=== PATIENT | male | born 1970 ===

== ENCOUNTER 2024-08-08 19:37 | Inpatient (IN) | payer OTHER ==
[~2024-08-08] VITALS: Ht 170.2 cm; Wt 89.1 kg
[2024-08-08] MEDS ORDERED: Ondansetron HCl 2 MG / ML 2ML Vial IV PRN ×2 (20:00→22:50)
[2024-08-08 20:06] LABS: BASOPHILS ABSOLUTE AUTO 0.03 K/mm3 (0.00-0.23); BASOPHILS PERCENT AUTO 0 % (0-2); EOSINOPHILS ABSOLUTE AUTO 0.01 K/mm3 (0.00-0.68); EOSINOPHILS PERCENT AUTO 0 % (0-6); Hematocrit 32.8 % (37.0-53.0); Hemoglobin 10.9 g/dL (13.5-17.5); IMMATURE GRAN ABSOLUTE AUTO 0.05 K/mm3 (0.00-0.10); IMMATURE GRAN PERCENT AUTO 1 % (0-1); LYMPHOCYTES ABSOLUTE AUTO 0.65 K/mm3 (0.84-5.20); LYMPHOCYTES PERCENT AUTO 8 % (21-46); MONOCYTES ABSOLUTE AUTO 0.67 K/mm3 (0.16-1.47); MONOCYTES PERCENT AUTO 8 % (4-13); Mean Corpuscular HGB 29.5 pg (26.0-34.0); Mean Corpuscular HGB Conc 33.2 g/dL (31.5-36.5); Mean Corpuscular Volume 89 fL (80-100); Mean Platelet Volume 9.9 fL (9.1-12.4); NEUTROPHILS ABSOLUTE AUTO 6.85 K/mm3 (1.96-9.15); NEUTROPHILS PERCENT AUTO 83 % (41-73); Platelet Count 300 K/mm3 (150-400); RDW Coefficient Variation 13.5 % (11.7-14.2); White Blood Cell Count 8.26 K/mm3 (4.00-11.30)
[2024-08-08 20:14] LABS: Albumin/Globulin Ratio 0.8 (0.8-1.8); Bilirubin, Total 0.8 mg/dL (0.1-1.0); Bun/Creatinine Ratio 15.7 (12.0-20.0); Calcium, Blood 9.1 mg/dL (8.5-10.1); Creatinine, Blood 1.02 mg/dL (0.60-1.20); Potassium, Blood 3.8 mmol/L (3.5-5.5)
[2024-08-08] MEDS ORDERED: Morphine Sulfate 4 MG/1 ML Injection IV ONE (22:15)
[2024-08-08] MEDS ORDERED: Dose Adjust by Pharmacy XX STA (22:30)
[2024-08-08 22:31] LABS: Anti-Xa UFH, PHA Monitoring <0.10 IU/mL; International Normalized Ratio 1.06; Prothrombin Time Results 11.3 Sec (9.7-11.5)
[2024-08-08] MEDS ORDERED: Heparin Sodium 5000 Units/ML 1ML MDV IV ONE (22:35)
[2024-08-08] MEDS ORDERED: Heparin Sodium,Porcine/0.5 NS 500 ML IV SCH (22:35)
[2024-08-08] MEDS ORDERED: NS 1,000 ML IV SCH (22:50)
[2024-08-08] MEDS ORDERED: FentaNYL Citrate 50 MCG/ML 2 ML Injection IV PRN (22:50)
[2024-08-08] MEDS ORDERED: FLU VACC TS2024-25(6MOS UP)/PF 45 MCG/0.5 ML SYRINGE IM ONE (22:50)
[2024-08-09 05:13] LABS: BASOPHILS ABSOLUTE AUTO 0.03 K/mm3 (0.00-0.23); BASOPHILS PERCENT AUTO 0 % (0-2); EOSINOPHILS ABSOLUTE AUTO 0.01 K/mm3 (0.00-0.68); EOSINOPHILS PERCENT AUTO 0 % (0-6); Hematocrit 30.7 % (37.0-53.0); Hemoglobin 10.4 g/dL (13.5-17.5); IMMATURE GRAN ABSOLUTE AUTO 0.05 K/mm3 (0.00-0.10); IMMATURE GRAN PERCENT AUTO 1 % (0-1); LYMPHOCYTES ABSOLUTE AUTO 1.66 K/mm3 (0.84-5.20); LYMPHOCYTES PERCENT AUTO 19 % (21-46); MONOCYTES ABSOLUTE AUTO 0.93 K/mm3 (0.16-1.47); MONOCYTES PERCENT AUTO 11 % (4-13); Mean Corpuscular HGB 29.6 pg (26.0-34.0); Mean Corpuscular HGB Conc 33.9 g/dL (31.5-36.5); Mean Corpuscular Volume 88 fL (80-100); Mean Platelet Volume 10.1 fL (9.1-12.4); NEUTROPHILS PERCENT AUTO 69 % (41-73); Platelet Count 279 K/mm3 (150-400); RDW Coefficient Variation 13.8 % (11.7-14.2); Red Blood Cell Count 3.51 M/mm3 (4.30-5.90); White Blood Cell Count 8.58 K/mm3 (4.00-11.30)
[2024-08-09 05:35] LABS: Albumin, Blood 2.7 g/dL (3.4-5.0); Albumin/Globulin Ratio 0.7 (0.8-1.8); Bilirubin, Total 0.5 mg/dL (0.1-1.0); Bun/Creatinine Ratio 14.5 (12.0-20.0); Calcium, Blood 8.7 mg/dL (8.5-10.1); Creatinine, Blood 1.1 mg/dL (0.60-1.20); Potassium, Blood 4.1 mmol/L (3.5-5.5); Total Protein, Blood 6.7 g/dL (6.4-8.2)
[2024-08-09] MEDS ORDERED: Clarify Drug Order XX ONE ×2 (05:50→21:20)
[2024-08-09 08:33] VITALS: BP 134/82
[2024-08-09] MEDS ORDERED: Guaifenesin/Dextromethorphan Syrup 5 ML UDC PO PRN (12:15)
[2024-08-09] MEDS ORDERED: Heparin Sodium 5000 Units/ML 1ML MDV IV ONE (13:05)
[2024-08-09 13:37] VITALS: BP 145/83
[2024-08-09 17:15] VITALS: BP 133/83
--- NOTE | 2024-08-09 18:33 | NUR ---
SHIFT SUMMARY PT A&O X4, CALM, COOPERATIVE TO CARE. HR IN THE 90'S, SINUS RHYTHM, SBP STABLE, PT REPORTS CP WITH COUGHING. O2 >92% ON RA. PT WITH A COUGH, HE REPORTS COUGHING/SPITTING UP BLOOD, MD AWARE. ECHO AND VENOUS DUPLEX COMPLETED TODAY. PT ON HEP GTT PER EMAR. HE DENIES ANY QUESTIONS/CONCERNS AT THIS TIME. WILL MONITOR PT AND REPORT TO MERCHANDISE MANAGER RN.
[2024-08-09] MEDS ORDERED: Loratadine 5 MG/5 ML 5MLUDC PO SCH (20:00)
[2024-08-09 20:41] VITALS: BP 140/93
[2024-08-09] MEDS ORDERED: Acetaminophen 500 MG Tab PO PRN (21:00)
[2024-08-10 03:23] LABS: BASOPHILS ABSOLUTE AUTO 0.04 K/mm3 (0.00-0.23); BASOPHILS PERCENT AUTO 1 % (0-2); EOSINOPHILS ABSOLUTE AUTO 0.02 K/mm3 (0.00-0.68); EOSINOPHILS PERCENT AUTO 0 % (0-6); Hematocrit 32.5 % (37.0-53.0); Hemoglobin 10.6 g/dL (13.5-17.5); IMMATURE GRAN ABSOLUTE AUTO 0.06 K/mm3 (0.00-0.10); IMMATURE GRAN PERCENT AUTO 1 % (0-1); LYMPHOCYTES ABSOLUTE AUTO 1.49 K/mm3 (0.84-5.20); LYMPHOCYTES PERCENT AUTO 17 % (21-46); MONOCYTES ABSOLUTE AUTO 0.97 K/mm3 (0.16-1.47); MONOCYTES PERCENT AUTO 11 % (4-13); Mean Corpuscular HGB Conc 32.6 g/dL (31.5-36.5); Mean Corpuscular Volume 89 fL (80-100); Mean Platelet Volume 10.1 fL (9.1-12.4); NEUTROPHILS PERCENT AUTO 71 % (41-73); Platelet Count 278 K/mm3 (150-400); RDW Standard Deviation 45.9 fL (35.1-46.3); Red Blood Cell Count 3.65 M/mm3 (4.30-5.90); White Blood Cell Count 8.88 K/mm3 (4.00-11.30)
[2024-08-10] MEDS ORDERED: Clarify Drug Order XX ONE (04:10)
[2024-08-10 05:06] VITALS: BP 123/84
--- NOTE | 2024-08-10 07:41 | NUR ---
SHIFT SUMMARY PT IS A&OX4, VSS ON RA. C/O MELVIN, AND PAIN IN HIS LEFT SIDE OF RIBS. MEDICATED PER EMAR. HEPARIN GTT, RATE UNCHANGED THIS SHIFT. PT IS COUGHING UP THICK, BLOOD TINGED SPUTUM. COUGH MEDICATION ADMINISTERED, PT STATES IT DOES NOTHING. PT IS INDEPENDENT IN ROOM. VOIDING IN TOILET, NO BM THIS SHIFT. TOLERATING A REGULAR DIET, REQUESTING SNACKS. BED IN LOWEST POSITION, CALL LIGHT WITHIN REACH.
[2024-08-10 08:26] VITALS: BP 134/84
[2024-08-10] MEDS ORDERED: Apixaban 5 MG Tab PO SCH (09:00)
[2024-08-10] MEDS ORDERED: ELIQUIS5 M2 PO (09:40)
[2024-08-10] MEDS ORDERED: Q-Tussin100 MG/5 M PO (09:41)
--- NOTE | 2024-08-10 13:03 | NUR ---
DICHARGE SUMMARY PT A&O X4, COOPERATIVE TO CARE. HR IN THE 90'S, SINUS RHYTHM, DENIES CP/PRESSURE, NUMB/TINGLING. O2 >92% ON RA, DENIES SOB, HE DOES REPORT SOME PAIN WHILE COUGHING, DENIES WANTING ANY COUGH MEDICINE. HE REPORTS COUGHING UP BLOODY SPUTUM, PROVIDER AWARE. HEP GTT D/C'D, PT STARTED ON ORAL ANTICOAGULATION. D/C ORDER RECIEVED FOR PT. DISCHARGE INSTRUCTIONS REVIEWED WITH PT. PT DENIED ANY QUESTIONS OR CONCERNS. IV'S REMOVED, GUAZE/COBAN APPLIED, PT TOLERATED WELL. PT LEFT VIA WHEELCHAIR WITH PCT.
== END 2024-08-10 12:50 | disposition home or self-care (01) | DRG 176 ==
LOC: ER 19:37 → ERHOLD 19:38 → PCU 08-09 11:28 → ERHOLD 08-09 11:29 → PCU 08-09 13:48
PROVIDERS: Emergency Medicine; ADMIT Internal Medicine
DX: I26.99 Other pulmonary embolism without acute cor pulmonale (principal); J90 Pleural effusion, not elsewhere classified; I10 Essential (primary) hypertension; Z79.899 Other long term (current) drug therapy
CPT/HCPCS: 36415; 71260; 80053; 83690; 83880; 84484; 85025; 85520; 85610; 85730; 93005; 93010; 93306; 93970; 96365; 96366; 96375; 96376; 99285-25; A9270; G0378; J1644; J2270; J3010; J7030; Q9967

== ENCOUNTER → 2024-08-08 | Outpatient (CLI) | payer OTHER ==
[~2024-08-08] MED LIST: ELIQUIS5 M2 PO; Q-Tussin100 MG/5 M PO
[2024-08-08 18:38] LABS: BASOPHILS ABSOLUTE AUTO 0.06 K/mm3 (0.00-0.23); BASOPHILS PERCENT AUTO 1 % (0-2); EOSINOPHILS ABSOLUTE AUTO 0.04 K/mm3 (0.00-0.68); EOSINOPHILS PERCENT AUTO 0 % (0-6); Hematocrit 37.1 % (37.0-53.0); Hemoglobin 12.2 g/dL (13.5-17.5); IMMATURE GRAN ABSOLUTE AUTO 0.06 K/mm3 (0.00-0.10); IMMATURE GRAN PERCENT AUTO 1 % (0-1); LYMPHOCYTES ABSOLUTE AUTO 1.21 K/mm3 (0.84-5.20); LYMPHOCYTES PERCENT AUTO 12 % (21-46); MONOCYTES ABSOLUTE AUTO 0.85 K/mm3 (0.16-1.47); MONOCYTES PERCENT AUTO 8 % (4-13); Mean Corpuscular HGB 28.6 pg (26.0-34.0); Mean Corpuscular HGB Conc 32.9 g/dL (31.5-36.5); Mean Corpuscular Volume 87 fL (80-100); Mean Platelet Volume 10.2 fL (9.1-12.4); NEUTROPHILS ABSOLUTE AUTO 7.84 K/mm3 (1.96-9.15); NEUTROPHILS PERCENT AUTO 78 % (41-73); Platelet Count 356 K/mm3 (150-400); RDW Coefficient Variation 13.7 % (11.7-14.2); RDW Standard Deviation 43.6 fL (35.1-46.3); Red Blood Cell Count 4.26 M/mm3 (4.30-5.90); White Blood Cell Count 10.06 K/mm3 (4.00-11.30)
[2024-08-08 18:54] LABS: Albumin, Blood 3.7 g/dL (3.4-5.0); Albumin/Globulin Ratio 0.8 (0.8-1.8); Bilirubin, Total 0.9 mg/dL (0.1-1.0); Calcium, Blood 9.8 mg/dL (8.5-10.1); Creatinine, Blood 1.38 mg/dL (0.60-1.20); Globulin, Blood 4.6 g/dL (2.2-4.0); Potassium, Blood 4.3 mmol/L (3.5-5.5); Total Protein, Blood 8.3 g/dL (6.4-8.2)
== END | disposition home or self-care (01) ==
LOC: LAB 18:33 → LAB SHORT 18:33
PROVIDERS: Family Medicine
DX: R07.89 Other chest pain (principal)
CPT/HCPCS: 80053; 84484; 85025; 85379